=== PATIENT | male | born 1980 | race Caucasian/White ===

== ENCOUNTER 2016-08-25 13:08 | Emergency (ER) | payer OTHER ==
[2016-08-25 13:38] VITALS: BP 177/75; PULSE 83; RESP 20
[2016-08-25] MEDS ORDERED: SODIUM CHLORIDE 0.9% 1,000 ML IV STA ×2 (13:46)
[2016-08-25] MEDS ORDERED: ACETAMINOPHEN TAB 325 MG TAB PO STA (13:46)
--- NOTE | 2016-08-25 13:57 | ED ---
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 Reports for the past 3 days he's had fatigue, muscle aches and pains, joint pains fever today 101. Loose stools for the last 3 days. Cold sweats last night. Patient reports that none of his coworkers or family feels same way. He is concerned about Lyme's disease. - Related Data Previous Rx's Medication Instructions Recorded Doxycycline [Vibramycin] 50 mg PO Q12HR #42 capsule 08/25/16 Allergies Allergy/AdvReac Type Severity Reaction Status Date / Time metoclopramide HCl AdvReac Unknown Verified 08/25/16 13:50 [From Reglan] Review of Systems ROS Statement: Those systems with pertinent positive or pertinent negative responses have been documented in the HPI. Review of systems no headache or visual acuity changes no chest pain or shortness of breath. Patient reports eye is loose stool. No change in appetite though. No neuro deficits he has muscle aches and pains and joint pains. No rashes noted. Never noticed any tick bites. All systems are reviewed. No significant past medical problems. Surgeries none. Family history grandmother had breast cancer. Patient has ALLERGIES to Reglan. He does smoke strongly encouraged to stop denies alcohol use. ROS Other: All systems not noted in ROS Statement are negative. Past Medical History Past Medical History: No Reported History History of Any Multi-Drug Resistant Organisms: None Reported Past Surgical History: No Surgical Hx Reported Past Psychological History: No Psychological Hx Reported Smoking Status: Current every day smoker Past Alcohol Use History: Rare Past Drug Use History: None Reported General Exam - General Exam Comments Initial Comments: General: The patient is awake and alert, in no distress, and does not appear acutely ill. See chief complaint. Vital signs temp 101.0 pulse 83 respiratory rate 20 pulse ox 99% room air blood pressure 177/75 Eye: Pupils are equal, round and reactive to light, extra-ocular movements are intact ; there is normal conjunctiva bilaterally. No signs of icterus. Ears, nose, mouth and throat: There are moist mucous membranes and no oral lesions. Neck: The neck is supple, there is no tenderness , no anterior cervical lymphadenopathy, no meningeal irritation or meningismus or stiff neck. Cardiovascular: There is a regular rate and rhythm. No murmur, rub or gallop is appreciated. Respiratory: Lungs are clear to auscultation, respirations are non-labored, breath sounds are equal. No wheezes, stridor, rales, or rhonchi. Gastrointestinal: Soft, non-distended, non-tender abdomen without masses or organomegaly noted. There is no rebound or guarding present. No CVA tenderness. Bowel sounds are unremarkable. Diarrhea for 3 days. Back: There is no tenderness to palpation in the midline. There is no obvious deformity. No rashes noted. Musculoskeletal: Normal ROM, no tenderness, There is no pedal edema. There is no calf tenderness or swelling. Sensation intact. Pulses equal bilaterally 2+. Muscle aches and pains, joint pains. No swollen joints. Neurological: No neuro deficits. Skin: Skin is warm and dry and no rashes or lesions are noted. No rashes noted. Never felt or saw a tick on his body. Limitations: no limitations Course Vital Signs 08/25/16 13:31 Temperature 101.0 F H Pulse Rate 83 Respiratory 20 Rate Blood Pressure 177/75 O2 Sat by Pulse 99 Oximetry Medical Decision Making - Medical Decision Making Medical decision making patient's white count is 10 hemoglobin 15 hematocrit of 48. Potassium 4.2 with a BUN 14 creatinine 0.91 and GFR greater than 60. Glucose 95. Bibb negative influenza AB-. - Lab Data Result diagrams: 08/25/16 14:01 08/25/16 14:01 Lab Results 08/25/16 08/25/16 08/25/16 Range/Units 14:01 14:01 14:01 WBC 10.3 (3.8-10.6) k/uL RBC 5.54 (4.30-5.90) m/uL Hgb 15.6 (13.0-17.5) gm/dL Hct 48.4 (39.0-53.0) % MCV 87.4 (80.0-100.0) fL MCH 28.2 (25.0-35.0) pg MCHC 32.3 (31.0-37.0) g/dL RDW 13.7 (11.5-15.5) % Plt Count 215 (150-450) k/uL Neutrophils % 83 % Lymphocytes % 10 % Monocytes % 4 % Eosinophils % 1 % Basophils % 0 % Neutrophils # 8.6 H (1.3-7.7) k/uL Lymphocytes # 1.0 (1.0-4.8) k/uL Monocytes # 0.5 (0-1.0) k/uL Eosinophils # 0.1 (0-0.7) k/uL Basophils # 0.0 (0-0.2) k/uL Sodium 141 (137-145) mmol/L Potassium 4.2 (3.5-5.1) mmol/L Chloride 104 (98-107) mmol/L Carbon Dioxide 25 (22-30) mmol/L Anion Gap 12 mmol/L BUN 14 (9-20) mg/dL Creatinine 0.91 (0.66-1.25) mg/dL Est GFR (MDRD) Af Amer >60 (>60 ml/min/1.73 sqM) Est GFR (MDRD) Non-Af >60 (>60 ml/min/1.73 sqM) Glucose 95 (74-99) mg/dL Calcium 9.3 (8.4-10.2) mg/dL Total Bilirubin 0.7 (0.2-1.3) mg/dL AST 33 (17-59) U/L ALT 20 L (21-72) U/L Alkaline Phosphatase 73 (38-126) U/L Total Protein 7.4 (6.3-8.2) g/dL Albumin 4.3 (3.5-5.0) g/dL Heterophile Antibody Negative (Negative) Influenza Type A RNA (Not Detectd) Influenza Type B (PCR) (Not Detectd) 08/25/16 Range/Units 14:01 WBC (3.8-10.6) k/uL RBC (4.30-5.90) m/uL Hgb (13.0-17.5) gm/dL Hct (39.0-53.0) % MCV (80.0-100.0) fL MCH (25.0-35.0) pg MCHC (31.0-37.0) g/dL RDW (11.5-15.5) % Plt Count (150-450) k/uL Neutrophils % % Lymphocytes % % Monocytes % % Eosinophils % % Basophils % % Neutrophils # (1.3-7.7) k/uL Lymphocytes # (1.0-4.8) k/uL Monocytes # (0-1.0) k/uL Eosinophils # (0-0.7) k/uL Basophils # (0-0.2) k/uL Sodium (137-145) mmol/L Potassium (3.5-5.1) mmol/L Chloride (98-107) mmol/L Carbon Dioxide (22-30) mmol/L Anion Gap mmol/L BUN (9-20) mg/dL Creatinine (0.66-1.25) mg/dL Est GFR (MDRD) Af Amer (>60 ml/min/1.73 sqM) Est GFR (MDRD) Non-Af (>60 ml/min/1.73 sqM) Glucose (74-99) mg/dL Calcium (8.4-10.2) mg/dL Total Bilirubin (0.2-1.3) mg/dL AST (17-59) U/L ALT (21-72) U/L Alkaline Phosphatase (38-126) U/L Total Protein (6.3-8.2) g/dL Albumin (3.5-5.0) g/dL Heterophile Antibody (Negative) Influenza Type A RNA Not Detected (Not Detectd) Influenza Type B (PCR) Not Detected (Not Detectd) Disposition Clinical Impression: Viral infection Disposition: HOME SELF-CARE Condition: Stable Instructions: Fever in Adults (ED), Lyme Disease (ED) Additional Instructions: A call for lab results in 3-5 days. Use Pepto-Bismol for diarrhea. Take doxycycline 100 mg twice a day until results are known of your lab tests. Follow-up with year family physician. He does have family physician follow-up with Dr. Jean-Baptiste Prescriptions: Doxycycline [Vibramycin] 50 mg PO Q12HR #42 capsule Referrals: None,Stated [Primary Care Provider] - 1-2 days Time of Disposition: 16:05
[2016-08-25 14:23] LABS: Basophils % (A) 0 %; CH 28.8; CHCM 33.1; Eosinophils # (A) 0.1 k/uL (0-0.7); Eosinophils % (A) 1 %; HCT 48.4 % (39.0-53.0); HDW 2.43; HGB 15.6 gm/dL (13.0-17.5); Luc # (Auto) 0.17; Luc % (Auto) 2; Lymphocytes % (A) 10 %; MCH 28.2 pg (25.0-35.0); MCHC 32.3 g/dL (31.0-37.0); MCV 87.4 fL (80.0-100.0); Mean Platelet Volume 6.7; Monocytes # (A) 0.5 k/uL (0-1.0); Monocytes % (A) 4 %; Neutrophils # (A) 8.6 k/uL (1.3-7.7); Neutrophils % (A) 83 %; RBC 5.54 m/uL (4.30-5.90); RDW 13.7 % (11.5-15.5); WBC 10.3 k/uL (3.8-10.6); WBC (Perox) 9.92
[2016-08-25 14:29] LABS: ALT 20 U/L (21-72); AST 33 U/L (17-59); Alkaline Phosphatase 73 U/L (38-126); Anion Gap 12 mmol/L; Blood Urea Nitrogen 14 mg/dL (9-20); Calcium 9.3 mg/dL (8.4-10.2); Carbon Dioxide 25 mmol/L (22-30); Chloride 104 mmol/L (98-107); Glucose 95 mg/dL (74-99); Non-African American GFR(MDRD) >60 (>60 ml/min/1.73 sqM); Potassium 4.2 mmol/L (3.5-5.1); Sodium 141 mmol/L (137-145); Total Bilirubin 0.7 mg/dL (0.2-1.3); Total Protein 7.4 g/dL (6.3-8.2)
[2016-08-25 16:38] VITALS: TEMP 98.7
[2016-08-27 10:32] LABS: Lyme IgG/IgM 0.2 Index; Lyme IgG/IgM Interp NEGATIVE (NEGATIVE)
== END 2016-08-25 16:18 | disposition home or self-care (01) ==
LOC: EC 13:08
DX: B34.9 Viral infection, unspecified (principal); F17.200 Nicotine dependence, unspecified, uncomplicated; Z88.8 Allergy status to other drugs, medicaments and biological substances
CPT/HCPCS: 36415; 80053; 85025; 86308; 86618; 87040; 87502; 99283

== ENCOUNTER 2019-01-10 13:31 | Emergency (ER) | payer OTHER ==
[2019-01-10] MEDS ORDERED: ORPHENADRINE 30 MG/ML 2 ML VIAL IM STA (13:57)
[2019-01-10] MEDS ORDERED: KETOROLAC 60 MG/2 ML VIAL IM STA (13:57)
--- NOTE | 2019-01-10 14:18 | ED ---
Upper Extremity HPI - General Chief Complaint: Extremity Injury, Upper Stated Complaint: Shoulder pain Time Seen by Provider: 01/10/19 13:45 Source: patient, RN notes reviewed Mode of arrival: ambulatory Limitations: no limitations - History of Present Illness Initial Comments: 38-year-old male presents emergency Department chief complaint of left shoulder, left trapezius pain. Patient states that this started when he woke up this morning. Patient states that the pain is unbearable and worse when he moves his neck. He denies any trauma. He does admit that he moved down to get something out of her drawer yesterday and felt a twinge in his neck. Patient states that he's had no prior neck or shoulder issues. Denies any chest pain. Patient de nies fevers, chills. Denies any swelling. He chest wall to come medications no relief. - Related Data Previous Rx's Medication Instructions Recorded Doxycycline [Vibramycin] 50 mg PO Q12HR #42 capsule 08/25/16 Cyclobenzaprine [Flexeril] 10 mg PO TID PRN #15 tab 01/10/19 Ibuprofen [Motrin] 600 mg PO Q8HR PRN #30 tab 01/10/19 Allergies Allergy/AdvReac Type Severity Reaction Status Date / Time metoclopramide HCl AdvReac Unknown Verified 01/10/19 13:44 [From [facility]] Review of Systems ROS Statement: Those systems with pertinent positive or pertinent negative responses have been documented in the HPI. ROS Other: All systems not noted in ROS Statement are negative. Past Medical History Past Medical History: No Reported History History of Any Multi-Drug Resistant Organisms: None Reported Past Surgical History: No Surgical Hx Reported Past Psychological History: No Psychological Hx Reported Smoking Status: Current every day smoker Past Alcohol Use History: Rare Past Drug Use History: Marijuana General Exam Limitations: no limitations General appearance: alert, in no apparent distress Head exam: Present: atraumatic, normocephalic, normal inspection Neck exam: Present: normal inspection, tenderness (Tenderness over the left trapezius, muscle spasm noted). Absent: meningismus, full ROM (Decreased range of motion secondary to pain), lymphadenopathy Respiratory exam: Present: normal lung sounds bilaterally. Absent: respiratory distress, wheezes, rales, rhonchi, stridor Cardiovascular Exam: Present: regular rate, normal rhythm, normal heart sounds. Absent: systolic murmur, diastolic murmur, rubs, gallop, clicks Extremities exam: Present: other (Upper extremities full range of motion neurovascular intact) Back exam: Present: full ROM. Absent: tenderness, paraspinal tenderness, vertebral tenderness Neurological exam: Present: alert, oriented X3, CN II-XII intact, reflexes normal. Absent: motor sensory deficit Skin exam: Present: warm, dry, intact, normal color. Absent: rash Course Vital Signs 01/10/19 13:42 Temperature 98.4 F Pulse Rate 84 Respiratory 18 Rate Blood Pressure 126/73 O2 Sat by Pulse 98 Oximetry Medical Decision Making - Medical Decision Making X-rays are unremarkable. Patient has left trapezius muscle spasm causing d iscomfort. Patient we discharged with muscle relaxers, pain medication return parameters were discussed. Disposition Clinical Impression: Strain of left trapezius muscle, Trapezius muscle spasm Disposition: HOME SELF-CARE Condition: Stable Instructions (If sedation given, give patient instructions): Spasmodic Torticollis (ED), Muscle Spasm (ED) Additional Instructions: Please return to the Emergency Department if symptoms worsen or any other concerns. Prescriptions: Cyclobenzaprine [Flexeril] 10 mg PO TID PRN #15 tab PRN Reason: Muscle Spasm Ibuprofen [Motrin] 600 mg PO Q8HR PRN #30 tab PRN Reason: Pain Is patient prescribed a controlled substance at d/c from ED?: No Referrals: None,Stated [Primary Care Provider] - 1-2 days Time of Disposition: 14:28
--- NOTE | 2019-01-10 14:23 | XR ---
EXAMINATION TYPE: XR cervical spine comp DATE OF EXAM: 01/10/2019 COMPARISON: None HISTORY: Pain TECHNIQUE: Cervical spine is examined in 5 views. FINDINGS: Prevertebral space is normal. There is slight kyphosis which can be positional. Posterior s quin lamellar line is intact. Foramen are patent. Disc height and vertebral body heights are preserv ed. IMPRESSION: 1. No acute osseous abnormality. 2. Minimal kyphosis which can be positional.
--- NOTE | 2019-01-10 14:24 | XR ---
EXAMINATION TYPE: XR chest 1V DATE OF EXAM: 01/10/2019 COMPARISON: None INDICATION: Pain, decreased range of motion left shoulder TECHNIQUE: Single frontal view of the chest is obtained. FINDINGS: The heart size is normal. The pulmonary vasculature is normal. The lungs are clear. Osseous structures appear normal IMPRESSION: 1. No acute pulmonary process.
[2019-01-10] MEDS ORDERED: ACET/COD 300 MG/30 MG STARTER PACK 6 TAB BTL PO STA (14:28)
[2019-01-10 14:53] VITALS: BP 129/74; PULSE 74; RESP 16; TEMP 98
== END 2019-01-10 14:52 | disposition home or self-care (01) ==
LOC: EC 13:31
DX: S46.812A Strain of other muscles, fascia and tendons at shoulder and upper arm level, left arm, initial encounter (principal); M62.830 Muscle spasm of back; F17.200 Nicotine dependence, unspecified, uncomplicated; Z88.8 Allergy status to other drugs, medicaments and biological substances; X58.XXXA Exposure to other specified factors, initial encounter
CPT/HCPCS: 72050; 71045; 99283; 96372 ×2; J2360; J1885

== ENCOUNTER 2020-07-22 12:46 | Emergency (ER) | payer OTHER ==
[2020-07-22 12:57] VITALS: BP 113/69; PULSE 101; RESP 18; TEMP 98.7
[2020-07-22] MEDS ORDERED: KETOROLAC 15 MG/ML 1 ML VIAL IM STA (13:07)
[2020-07-22] MEDS ORDERED: ACET/COD 300 MG/30 MG STARTER PACK 6 TAB BTL PO STA (13:10)
--- NOTE | 2020-07-22 13:11 | ED ---
ENT HPI - General Chief complaint: Dental/Oral Stated complaint: Tooth pain Time Seen by Provider: 07/22/20 12:58 Source: patient Mode of arrival: ambulatory Limitations: no limitations - History of Present Illness Initial comments: Patient is a 40-year-old male presenting to the emergency Department with complaints of left-sided dental pain for the past week. He states his tooth broke last week and he's been trying to do with the pain. He has been taking ibuprofen, has been seem to helping but over the last 2 days his pain increased. He is trying to get into dental clinic. He denies any fevers or chills, no facial swelling, no nausea or vomiting. He states he thinks he might have an infection starting is requesting antibiotics. He has no further complaints at this time. - Related Data Previous Rx's Medication Instructions Recorded Doxycycline [Vibramycin] 50 mg PO Q12HR #42 capsule 08/25/16 Cyclobenzaprine [Flexeril] 10 mg PO TID PRN #15 tab 01/10/19 Ibuprofen [Motrin] 600 mg PO Q8HR PRN #30 tab 01/10/19 Penicillin V Potassium [Pen Vee K] 500 mg PO QID 7 Days #28 tablet 07/22/20 Allergies Allergy/AdvReac Type Severity Reaction Status Date / Time metoclopramide HCl AdvReac Unknown Verified 07/22/20 12:57 [From [facility]] Review of Systems ROS Statement: Those systems with pertinent positive or pertinent negative responses have been documented in the HPI. ROS Other: All systems not noted in ROS Statement are negative. Past Medical History Past Medical History: No Reported History History of Any Multi-Drug Resistant Organisms: None Reported Past Surgical History: No Surgical Hx Reported Past Psychological History: Anxiety Smoking Status: Vaper Past Alcohol Use History: Rare Past Drug Use History: Marijuana General Exam - General Exam Comments Initial Comments: GENERAL: Patient is well-developed and well-nourished. Patient is nontoxic and in no acute distress. HEAD: Atraumatic, normocephalic. EYES: Pupils equal round and reactive to light, extraocular movements intact, sclera anicteric, conjunctiva are normal. Eyelids were unremarkable. ENT: Nares patent, oropharynx clear without exudates. Moist mucous membranes. Patient has a small fracture of tooth #19, no visible abscess seen, no facial swelling. NECK: Normal range of motion, supple without lymphadenopathy or JVD. LUNGS: Unlabored respirations. Breath sounds clear to auscultation bilaterally and equal. No wheezes rales or rhonchi. HEART: Regular rate and rhythm without murmurs, rubs or gallops. ABDOMEN: Soft, nontender, normoactive bowel sounds. No guarding, no rebound. No masses appreciated. : Deferred MUSCULOSKELETAL: Normal extremities with adequate strength and normal range of motion, no pitting or edema. No clubbing or cyanosis. NEUROLOGICAL: Patient is alert and oriented x 3. Normal speech, normal gait. PSYCH: Normal mood, normal affect. SKIN: Warm, Dry, normal turgor, no rashes or lesions noted. Limitations: no limitations Course Vital Signs 07/22/20 12:54 Temperature 98.7 F Pulse Rate 101 H Respiratory 18 Rate Blood Pressure 113/69 O2 Sat by Pulse 98 Oximetry Medical Decision Making - Medical Decision Making Patient is a 40-year-old male here for left-sided dental pain for the past week, he had a small fracture in tooth #19, no visible dental abscess, no facial swelling. His vitals are stable, afebrile. Patient will be started on penicillin for possible dental abscess, he does have an appointment to see a dental clinic next week. He can continue with ibuprofen, alternate with Tylenol for discomfort. He is stable for discharge. Return parameters were discussed with him and he verbalized understanding. Case discussed with Dr. Gutierrez. Disposition Clinical Impression: Fracture of tooth, Toothache Disposition: HOME SELF-CARE Condition: Stable Instructions (If sedation given, give patient instructions): Dental Abscess (ED) Additional Instructions: Please return to the Emergency Department if symptoms worsen or any other concerns. Take antibiotic as prescribed. Alternate between Tylenol and Motrin for discomfort. Follow up with your dentist as discussed. Prescriptions: Penicillin V Potassium [Pen Vee K] 500 mg PO QID 7 Days #28 tablet Is patient prescribed a controlled substance at d/c from ED?: No Referrals: None,Stated [Primary Care Provider] - 1-2 days Time of Disposition: 13:10
== END 2020-07-22 13:26 | disposition home or self-care (01) ==
LOC: EC 12:46
DX: K03.81 Cracked tooth (principal); F17.290 Nicotine dependence, other tobacco product, uncomplicated
CPT/HCPCS: 96372 ×2; 99282 ×2; J1885

== ENCOUNTER 2020-08-22 06:34 | Emergency (ER) | payer OTHER ==
[2020-08-22 06:40] VITALS: BP 127/77; PULSE 77; RESP 20; TEMP 98
--- NOTE | 2020-08-22 06:40 | ED ---
General Adult HPI - General Stated complaint: Dental Pain Time Seen by Provider: 08/22/20 06:38 Source: patient, RN notes reviewed Mode of arrival: ambulatory Limitations: no limitations - History of Present Illness Initial comments: This a 40-year-old male presents emergency Department chief complaint dental pain. Patient states his started last 2 days. Patient was seen yesterday at on the emergency department was given amoxicillin 3 times a day. Patient states it seemed to worsen throughout the night. Patient suffering for his pain. Patient states that there is an area of swelling. No fevers or chills no difficulty swallowing. Patient states that he contacted the dental clinic at home would be several months. - Related Data Previous Rx's Medication Instructions Recorded Doxycycline [Vibramycin] 50 mg PO Q12HR #42 capsule 08/25/16 Cyclobenzaprine [Flexeril] 10 mg PO TID PRN #15 tab 01/10/19 Ibuprofen [Motrin] 600 mg PO Q8HR PRN #30 tab 01/10/19 Penicillin V Potassium [Pen Vee K] 500 mg PO QID 7 Days #28 tablet 07/22/20 Clindamycin HCl 300 mg PO Q6HR #40 cap 08/22/20 Allergies Allergy/AdvReac Type Severity Reaction Status Date / Time metoclopramide HCl AdvReac Unknown Verified 08/22/20 06:39 [From [facility]] Review of Systems ROS Statement: Those systems with pertinent positive or pertinent negative responses have been documented in the HPI. ROS Other: All systems not noted in ROS Statement are negative. Past Medical History Past Medical History: No Reported History History of Any Multi-Drug Resistant Organisms: None Reported Past Surgical History: No Surgical Hx Reported Past Psychological History: Anxiety Smoking Status: Vaper Past Alcohol Use History: Rare Past Drug Use History: Marijuana General Exam General appearance: alert, in no apparent distress Head exam: Present: atraumatic, normocephalic, normal inspection Eye exam: Present: normal appearance, PERRL, EOMI. Absent: scleral icterus, co njunctival injection, periorbital swelling ENT exam: Present: mucous membranes moist, TM's normal bilaterally, normal external ear exam. Absent: normal oropharynx (Dental caries, no drainable abscess) Neck exam: Present: normal inspection, full ROM. Absent: tenderness, meningismus, lymphadenopathy Respiratory exam: Present: normal lung sounds bilaterally. Absent: respiratory distress, wheezes, rales, rhonchi, stridor Cardiovascular Exam: Present: regular rate, normal rhythm, normal heart sounds. Absent: systolic murmur, diastolic murmur, rubs, gallop, clicks Course Vital Signs 08/22/20 06:35 Temperature 98 F Pulse Rate 77 Respiratory 20 Rate Blood Pressure 127/77 O2 Sat by Pulse 100 Oximetry Medical Decision Making - Medical Decision Making 40-year-old male presents emergency Department for dental pain. Patient has dental infection, , facial swelling. Patient placed on antibiotics. Patient is advised to continue taking antibiotics if no improvement may start new antibiotics. Patient provided pain control. Patient advised follow-up with dentist or dental clinic. Return parameters were discussed. Disposition Clinical Impression: Pain, dental Disposition: HOME SELF-CARE Condition: Stable Instructions (If sedation given, give patient instructions): Toothache (ED) Additional Instructions: Please return to the Emergency Department if symptoms worsen or any other concerns. Prescriptions: Clindamycin HCl 300 mg PO Q6HR #40 cap Is patient prescribed a controlled substance at d/c from ED?: No Referrals: None,Stated [Primary Care Provider] - 1-2 days Time of Disposition: 06:46
[2020-08-22] MEDS ORDERED: ACET/COD 300 MG/30 MG STARTER PACK 6 TAB BTL PO STA (06:45)
== END 2020-08-22 06:55 | disposition home or self-care (01) ==
LOC: EC 06:34
DX: K04.7 Periapical abscess without sinus (principal); F41.9 Anxiety disorder, unspecified; F17.290 Nicotine dependence, other tobacco product, uncomplicated; F12.90 Cannabis use, unspecified, uncomplicated
CPT/HCPCS: 99282

== ENCOUNTER 2020-10-12 20:18 | Emergency (ER) | payer OTHER ==
[2020-10-12 20:33] VITALS: BP 142/64; PULSE 94; RESP 17; TEMP 98.6
[2020-10-12] MEDS ORDERED: PROPARACAINE 0.5% OPHTH DROPS 15 ML BTL RIGHT EYE STA (20:53)
[2020-10-12] MEDS ORDERED: FLUORESCEIN STRIPS 1 MG STRIP RIGHT EYE ONE (20:53)
--- NOTE | 2020-10-12 21:24 | ED ---
Eye Problem HPI - General Chief complaint: Eye Problems Stated complaint: right eye irritation Time Seen by Provider: 10/12/20 20:34 Source: patient Mode of arrival: ambulatory Limitations: no limitations - History of Present Illness Initial comments: Patient is a 32-year-old male presenting to the emergency Department with complaints of irritation in his right eye for the past 2-3 days. He states he was working on his car and believes a piece of metal landed in his eye. He states he thought he. All out but it continues to be irritated. He does not wear contacts. His tetanus is up-to-date. He denies any blurry vision, no headache, no significant eye pain just irritation. He has no further complaints at this time. - Related Data Previous Rx's Medication Instructions Recorded Doxycycline [Vibramycin] 50 mg PO Q12HR #42 capsule 08/25/16 Cyclobenzaprine [Flexeril] 10 mg PO TID PRN #15 tab 01/10/19 Ibuprofen [Motrin] 600 mg PO Q8HR PRN #30 tab 01/10/19 Penicillin V Potassium [Pen Vee K] 500 mg PO QID 7 Days #28 tablet 07/22/20 Clindamycin HCl 300 mg PO Q6HR #40 cap 08/22/20 Clindamycin HCl 300 mg PO Q6HR #40 cap 08/23/20 Erythromycin Ophth Oint [Romycin 1 applic RIGHT EYE QID 5 Days #1 10/12/20 Ophth Oint] tube Allergies Allergy/AdvReac Type Severity Reaction Status Date / Time metoclopramide HCl AdvReac Unknown Verified 10/12/20 20:32 [From [facility]] Review of Systems ROS Statement: Those systems with pertinent positive or pertinent negative responses have been documented in the HPI. ROS Other: All systems not noted in ROS Statement are negative. Past Medical History Past Medical History: No Reported History History of Any Multi-Drug Resistant Organisms: None Reported Past Surgical History: No Surgical Hx Reported Past Psychological History: Anxiety, Bipolar Smoking Status: Vaper Past Alcohol Use History: None Reported Past Drug Use History: Marijuana General Exam - General Exam Comments Initial Comments: GENERAL: Patient is well-developed and well-nourished. Patient is nontoxic and in no acute distress. HEAD: Atraumatic, normocephalic. EYES: Pupils equal round and reactive to light, extraocular movements intact, sclera anicteric. Eyelids were unremarkable. Right conjunctiva slightly injected, appears to be a foreign body noted right in the middle just to the right of his cornea. No other foreign bodies identified, for a scene stain only revealed an abrasion at the foreign body site, no other acute findings. ENT: Moist mucous membranes. NECK: Normal range of motion, supple without lymphadenopathy or JVD. LUNGS: Unlabored respirations. Breath sounds clear to auscultation bilaterally and equal. No wheezes rales or rhonchi. HEART: Regular rate and rhythm without murmurs, rubs or gallops. MUSCULOSKELETAL: Normal extremities with adequate strength and normal range of motion, no pitting or edema. No clubbing or cyanosis. NEUROLOGICAL: Patient is alert and oriented x 3. SKIN: Warm, Dry, normal turgor, no rashes or lesions noted. Limitations: no limitations Course Vital Signs 10/12/20 20:28 Temperature 98.6 F Pulse Rate 94 Respiratory 17 Rate Blood Pressure 142/64 O2 Sat by Pulse 97 Oximetry Procedures - Forgein Body Removal Eye Site: Right Anesthetic Used: Proparacaine Eye Exam Technique: Fluorescein Foreign Body Suspected: Metal Forgein Body Removal Technique: Cotton Swab, Irrigation, Needle Remaining Debris: No Patient Tolerated: well Medical Decision Making - Medical Decision Making Patient is a 32-year-old male here with right eye irritation for the past 2-3 days. There was a foreign body noted just to the right of his cornea. I did numb his eye with proparacaine drops, foreign body was removed with, swab as well as using a needle and irrigation. He tolerated procedure well. I will give him ophthalmology follow-up and start him on antibiotic ointment. He is s table for discharge in agreement with this plan of care. Disposition Clinical Impression: Foreign body of right eye Disposition: HOME SELF-CARE Condition: Stable Instructions (If sedation given, give patient instructions): Eye Foreign Body (ED) Additional Instructions: Please return to the Emergency Department if symptoms worsen or any other concerns. Use antibiotic ointment as prescribed. Follow-up with ophthalmology. Prescriptions: Erythromycin Ophth Oint [Romycin Ophth Oint] 1 applic RIGHT EYE QID 5 Days #1 tube Is patient prescribed a controlled substance at d/c from ED?: No Referrals: None,Stated [Primary Care Provider] - 1-2 days Venu Desir MD [STAFF PHYSICIAN] - 1-2 days Time of Disposition: 21:24
== END 2020-10-12 21:43 | disposition home or self-care (01) ==
LOC: EC 20:18
DX: T15.01XA Foreign body in cornea, right eye, initial encounter (principal); W22.8XXA Striking against or struck by other objects, initial encounter; F17.290 Nicotine dependence, other tobacco product, uncomplicated; F12.90 Cannabis use, unspecified, uncomplicated; Z79.1 Long term (current) use of non-steroidal anti-inflammatories (NSAID); Z79.899 Other long term (current) drug therapy
CPT/HCPCS: 65220; 99283

== ENCOUNTER 2020-10-23 10:30 | Emergency (ER) | payer OTHER ==
[2020-10-23 10:34] VITALS: BP 135/88; PULSE 76; RESP 18; TEMP 98
--- NOTE | 2020-10-23 11:03 | ED ---
Head Injury HPI - General Chief complaint: Head Injury Stated complaint: head injury Time Seen by Provider: 10/23/20 10:36 Source: patient Mode of arrival: wheelchair Limitations: no limitations - History of Present Illness Initial comments: 40-year-old male presenting to the emergency department with a chief complaint of a head injury. States this occurred about one hour prior to arrival. Patient reports he was changing the spring on the shocks or review of "when the tool slipped, caused decompressed spring to flying to his forehead. Patient rep orts an abrasion to the forehead with some pain when the area is palpated. He denies any loss of consciousness and blood thinners. He denies any headaches, once the weakness and paresthesias. Denies any blurry vision at this time. - Related Data Home Medications Medication Instructions Recorded Confirmed Divalproex Sodium [Depakote] 500 mg PO BID 10/23/20 10/23/20 Naproxen Sodium [Aleve] 440 mg PO DAILY PRN 10/23/20 10/23/20 busPIRone HCL 15 mg PO BID 10/23/20 10/23/20 Previous Rx's Medication Instructions Recorded Erythromycin Ophth Oint [Romycin 1 applic RIGHT EYE QID 5 Days #1 10/12/20 Ophth Oint] tube Allergies/Adverse reactions: Allergies Allergy/AdvReac Type Severity Reaction Status Date / Time metoclopramide HCl AdvReac Unknown Verified 10/23/20 11:32 [From [facility]] Review of Systems ROS Statement: Those systems with pertinent positive or pertinent negative responses have been documented in the HPI. ROS Other: All systems not noted in ROS Statement are negative. Past Medical History Past Medical History: No Reported History History of Any Multi-Drug Resistant Organisms: None Reported Past Surgical History: No Surgical Hx Reported Past Psychological History: Anxiety, Bipolar Smoking Status: Current every day smoker, Vaper Past Alcohol Use History: None Reported Past Drug Use History: Marijuana General Exam Limitations: no limitations General appearance: alert, in no apparent distress Head exam: Present: atraumatic, normocephalic, normal inspection (, Very superficial laceration to forehead). Absent: other (Negative Gomez sign, raccoon eyes, temp and.) Eye exam: Present: normal appearance, PERRL, EOMI. Absent: scleral icterus, conjunctival injection, nystagmus Pupils: Present: normal accommodation ENT exam: Present: normal exam, normal oropharynx, mucous membranes moist, TM's normal bilaterally, normal external ear exam Neck exam: Present: normal inspection, full ROM. Absent: tenderness Respiratory exam: Present: normal lung sounds bilaterally. Absent: respiratory distress Cardiovascular Exam: Present: regular rate, normal rhythm, normal heart sounds. Absent: diastolic murmur Extremities exam: Present: normal inspection, full ROM. Absent: tenderness Back exam: Present: normal inspection, full ROM. Absent: tenderness Neurological exam: Present: alert, oriented X3 Psychiatric exam: Present: normal affect, normal mood Skin exam: Present: warm, dry, intact, normal color Course Vital Signs 10/23/20 10:31 Temperature 98.0 F Pulse Rate 76 Respiratory 18 Rate Blood Pressure 135/88 O2 Sat by Pulse 99 Oximetry Medical Decision Making - Medical Decision Making 40-year-old male presenting to the emergency department with a chief complaint of a head injury. On physical examination, patient has a fair superficial laceration to the head. I did offer adeel, he declined. He would rather have some Steri-Strips. CT of the head and neck is unremarkable. The wound was cleaned and Steri-Strips applied. His tetanus is up-to-date. Return parameters discussed. PCP follow-up discussed. Disposition Clinical Impression: Contusion of scalp, Head injury Disposition: HOME SELF-CARE Condition: Stable Instructions (If sedation given, give patient instructions): Concussion (ED) Additional Instructions: Please return to the Emergency Department if symptoms worsen or any other concerns. Is patient prescribed a controlled substance at d/c from ED?: No Referrals: None,Stated [Primary Care Provider] - 1-2 days Time of Disposition: 11:45
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
== END 2020-10-23 11:56 | disposition home or self-care (01) ==
LOC: EC 10:30
DX: S00.03XA Contusion of scalp, initial encounter (principal); F41.9 Anxiety disorder, unspecified; F31.9 Bipolar disorder, unspecified; F17.200 Nicotine dependence, unspecified, uncomplicated; F12.90 Cannabis use, unspecified, uncomplicated; W20.8XXA Other cause of strike by thrown, projected or falling object, initial encounter
CPT/HCPCS: 70450; 72125; 99283

== ENCOUNTER 2021-02-18 13:01 | Emergency (ER) | payer OTHER ==
[2021-02-18 13:22] VITALS: BP 133/84; PULSE 72; RESP 18; TEMP 98.2
[2021-02-18] MEDS ORDERED: LIDOCAINE 1% INJ 10MG/ML (20 ML MDV) SQ ONE (13:56)
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
== END 2021-02-18 15:30 | disposition home or self-care (01) ==
LOC: EC 13:01
DX: S01.01XA Laceration without foreign body of scalp, initial encounter (principal); S60.10XA Contusion of unspecified finger with damage to nail, initial encounter; V89.2XXA Person injured in unspecified motor-vehicle accident, traffic, initial encounter; F41.9 Anxiety disorder, unspecified; F31.9 Bipolar disorder, unspecified; F17.290 Nicotine dependence, other tobacco product, uncomplicated; F12.90 Cannabis use, unspecified, uncomplicated
CPT/HCPCS: 73030; 70450; 99284; 12002; J2001

== ENCOUNTER 2021-03-13 10:43 | Emergency (ER) | payer OTHER ==
[2021-03-13 11:02] VITALS: BP 161/85; PULSE 84; RESP 20; TEMP 98.9
--- NOTE | 2021-03-13 11:28 | ED ---
URI HPI - General Chief Complaint: Upper Respiratory Infection Stated Complaint: covid symptoms Time Seen by Provider: 03/13/21 10:48 Source: patient, RN notes reviewed Mode of arrival: ambulatory Limitations: no limitations - History of Present Illness Initial Comments: 41-year-old male presents emergency Department chief complaint of fever chills. cough congestion. Patient states symptoms started last couple days. Patient concerned he may have covid 19. No dyspnea. No chest pain. Patient does complain his body aches with increasing congestion sore throat and ear pain. - Related Data Home Medications Medication Instructions Recorded Confirmed Divalproex Sodium [Depakote] 500 mg PO BID 10/23/20 10/23/20 Naproxen Sodium [Aleve] 440 mg PO DAILY PRN 10/23/20 10/23/20 busPIRone HCL 15 mg PO BID 10/23/20 10/23/20 Previous Rx's Medication Instructions Recorded Erythromycin Ophth Oint [Romycin 1 applic RIGHT EYE QID 5 Days #1 10/12/20 Ophth Oint] tube HYDROcodone/APAP 5-325MG [[place] 1 tab PO Q6HR PRN 3 Days #12 tab 02/18/21 5-325] Allergies Allergy/AdvReac Type Severity Reaction Status Date / Time metoclopramide HCl AdvReac Unknown Verified 02/18/21 13:22 [From [facility]] Review of Systems ROS Statement: Those systems with pertinent positive or pertinent negative responses have been documented in the HPI. ROS Other: All systems not noted in ROS Statement are negative. Past Medical History Past Medical History: No Reported History History of Any Multi-Drug Resistant Organisms: None Reported Past Surgical History: No Surgical Hx Reported Past Psychological History: Anxiety, Bipolar Smoking Status: Current every day smoker, Vaper Past Alcohol Use History: None Reported Past Drug Use History: Marijuana General Exam Limitations: no limitations General appearance: alert, in no apparent distress Head exam: Present: atraumatic, normocephalic, normal inspection Eye exam: Present: normal appearance, PERRL, EOMI. Absent: scleral icterus, conjunctival injection, periorbital swelling ENT exam: Present: normal exam, normal oropharynx, mucous membranes moist Neck exam: Present: normal inspection, full ROM. Absent: tenderness, meningismus, lymphadenopathy Respiratory exam: Present: normal lung sounds bilaterally. Absent: respiratory distress, wheezes, rales, rhonchi, stridor Cardiovascular Exam: Present: regular rate, normal rhythm, normal heart sounds. Absent: systolic murmur, diastolic murmur, rubs, gallop, clicks Course Vital Signs 03/13/21 10:59 Temperature 98.9 F Pulse Rate 84 Respiratory 20 Rate Blood Pressure 161/85 O2 Sat by Pulse 99 Oximetry Medical Decision Making - Medical Decision Making Patient is positive for covid 19. Patient's vitals are reviewed and are stable be discharged in stable condition return parameters were discussed. - Lab Data Lab Results 03/13/21 Range/Units 11:03 Coronavirus (PCR) Detected A (Not Detectd) Disposition Clinical Impression: COVID-19 Disposition: HOME SELF-CARE Condition: Stable Instructions (If sedation given, give patient instructions): Coronavirus Disease 2019 (COVID-19) Additional Instructions: Please return to the Emergency Department if symptoms worsen or any other concerns. Is patient prescribed a controlled substance at d/c from ED?: No Referrals: None,Stated [Primary Care Provider] - 1-2 days Time of Disposition: 11:28
== END 2021-03-13 11:37 | disposition home or self-care (01) ==
LOC: EC 10:43
DX: U07.1 COVID-19 (principal); F41.9 Anxiety disorder, unspecified; F31.9 Bipolar disorder, unspecified; F17.200 Nicotine dependence, unspecified, uncomplicated; F12.90 Cannabis use, unspecified, uncomplicated
CPT/HCPCS: 87635; 99283

== ENCOUNTER 2022-08-20 06:42 | Emergency (ER) | payer OTHER ==
[2022-08-20 06:50] VITALS: RESP 18
--- NOTE | 2022-08-20 07:22 | ED ---
General Adult HPI - General Chief complaint: Extremity Problem,Nontraumatic Stated complaint: Swollen right hand Time Seen by Provider: 08/20/22 07:00 Source: patient, RN notes reviewed, old records reviewed Mode of arrival: ambulatory Limitations: no limitations - History of Present Illness Initial comments: 42 yo female presenting for evaluation of right hand swelling. Patient initially noticed a small area of swelling on the dorsum of his right hand. This regressed over the past 48 hours and now involves the entire dorsal surface of the hand and he has pain with range of motion of his second and third digit. Patient is nondiabetic, no history of fever. - Related Data Home Medications Medication Instructions Recorded Confirmed Divalproex Sodium [Depakote] 500 mg PO BID 10/23/20 10/23/20 Naproxen Sodium [Aleve] 440 mg PO DAILY PRN 10/23/20 10/23/20 busPIRone HCL 15 mg PO BID 10/23/20 10/23/20 Previous Rx's Medication Instructions Recorded Erythromycin Ophth Oint [Romycin 1 applic RIGHT EYE QID 5 Days #1 10/12/20 Ophth Oint] tube HYDROcodone/APAP 5-325MG [[place] 1 tab PO Q6HR PRN 3 Days #12 tab 02/18/21 5-325] Cephalexin [Keflex] 500 mg PO Q6HR 10 Days #40 cap 08/20/22 Sulfamethox-Tmp 800-160Mg [Bactrim 1 tab PO Q12HR 10 Days #20 tab 08/20/22 DS 800-160 mg] Allergies Allergy/AdvReac Type Severity Reaction Status Date / Time metoclopramide HCl AdvReac Unknown Verified 08/20/22 06:50 [From [facility]] Review of Systems ROS Statement: Those systems with pertinent positive or pertinent negative responses have been documented in the HPI. ROS Other: All systems not noted in ROS Statement are negative. Past Medical History Past Medical History: No Reported History History of Any Multi-Drug Resistant Organisms: None Reported Past Surgical History: No Surgical Hx Reported Past Psychological History: Anxiety, Bipolar Smoking Status: Current every day smoker, Vaper Past Alcohol Use History: None Reported Past Drug Use History: Marijuana General Exam Limitations: no limitations General appearance: alert, in no apparent distress Head exam: Present: atraumatic, normocephalic Eye exam: Present: normal appearance, PERRL ENT exam: Present: normal exam Neck exam: Present: normal inspection Respiratory exam: Present: normal lung sounds bilaterally. Absent: respiratory distress Cardiovascular Exam: Present: regular rate, normal rhythm GI/Abdominal exam: Present: soft. Absent: distended, tenderness Extremities exam: Present: other (Erythema and swelling to the dorsum of the r ight hand. Pain with flexion second third digits.) Neurological exam: Present: alert, oriented X3, CN II-XII intact. Absent: motor sensory deficit Psychiatric exam: Present: normal affect, normal mood Skin exam: Present: warm Course Vital Signs 08/20/22 06:48 Temperature 98 F Pulse Rate 97 Respiratory 18 Rate Blood Pressure 124/84 O2 Sat by Pulse 100 Oximetry Medical Decision Making - Medical Decision Making Was pt. sent in by a medical professional or institution (, [facility], MEMBER SERVICE REPRESENTATIVE, urgent care, hospital, or senior living...) When possible be specific @ -No Did you speak to anyone other than the patient for history (EMS, parent, family, police, friend...)? What history was obtained from this source @ -No Did you review nursing and triage notes (agree or disagree)? Why? @ -I reviewed and agree with nursing and triage notes Were old charts reviewed (outside hosp., previous admission, EMS record, old EKG, old radiological studies, urgent care reports/EKG's, senior living records)? Report findings @ -No old charts were reviewed Differential Diagnosis (chest pain, altered mental status, abdominal pain women, abdominal pain men, vaginal bleeding, weakness, fever, dyspnea, syncope, headache, dizziness, GI bleed, back pain, seizure, CVA, palpatations, mental health, musculoskeletal)? @ -Cellulitis, extensor tenosynovitis, DVT EKG interpreted by me (3pts min.). @ -As above X-rays interpreted by me (1pt min.). @ -None done CT interpreted by me (1pt min.). @ -None done U/S interpreted by me (1pt. min.). @ -[Negative for DVT What testing was considered but not performed or refused? (CT, X-rays, U/S, labs)? Why? @ -None What meds were considered but not given or refused? Why? @ -None Did you discuss the management of the patient with other professionals (professionals i.e. , PA, MEMBER SERVICE REPRESENTATIVE, lab, RT, psych nurse, director of social work, counter supervisor, teacher, transportation security officer, case management manager)? Give summary @ -No Was smoking cessation discussed for >3mins.? @ -No Was critical care preformed (if so, how long)? @ -No Were there social determinants of health that impacted care today? How? (Homelessness, low income, unemployed, alcoholism, drug addiction, redd sportation, low edu. Level, literacy, decrease access to med. care, penitentiary, rehab)? @ -No Was there de-escalation of care discussed even if they declined (Discuss DNR or withdrawal of care, Hospice)? DNR status @ -No What co-morbidities impacted this encounter? (DM, HTN, Smoking, COPD, CAD, Cancer, CVA, ARF, Chemo, Hep., AIDS, mental health diagnosis, sleep apnea, morbid obesity)? @ -None Was patient admitted / discharged? Hospital course, mention meds given and route, prescriptions, significant lab abnormalities, going to OR and other pertinent info. @ -[42-year-old male presenting for evaluation of pain and swelling to the dorsum of his right hand. There is soft tissue swelling with an area tenderness. There is some pain with flexion of the second and third digits although this is at the end of the range of motion. There is no swelling within the digits themselves. Normal cap refill, normal pulse exam. The wrist has normal range of motion. Patient is afebrile. He has a normal white count without shift. He hasn't nondetectable CRP. I do feel this is likely a cellulitis rather than deep space infection of the hand. Patient started on antibiotics and given orthopedic follow-up. He is given strict return parameters including any worsening of swelling, pain, fever. Undiagnosed new problem with uncertain prognosis? @ -No Drug Therapy requiring intensive monitoring for toxicity (Heparin, Nitro, Insulin, Cardizem)? @ -No Were any procedures done? @ -No Diagnosis/symptom? @ -Cellulitis of the hand Acute, or Chronic, or Acute on Chronic? @ -Acute Uncomplicated (without systemic symptoms) or Complicated (systemic symptoms)? @ -default Side effects of treatment? @ -No Exacerbation, Progression, or Severe Exacerbation? @ -No Poses a threat to life or bodily function? How? (Chest pain, USA, SC, pneumonia, PE, COPD, DKA, ARF, appy, cholecystitis, CVA, Diverticulitis, Homicidal, Suicidal, threat to staff... and all critical care pts) @ -Low risk - Lab Data Result diagrams: 08/20/22 07:21 08/20/22 07:21 Lab Results 08/20/22 08/20/22 Range/Units 07:21 07:21 WBC 6.6 (3.8-10.6) k/uL RBC 5.62 (4.30-5.90) m/uL Hgb 16.3 (13.0-17.5) gm/dL Hct 49.2 (39.0-53.0) % MCV 87.5 (80.0-100.0) fL MCH 29.0 (25.0-35.0) pg MCHC 33.2 (31.0-37.0) g/dL RDW 13.6 (11.5-15.5) % Plt Count 285 (150-450) k/uL MPV 7.3 Neutrophils % 63 % Lymphocytes % 27 % Monocytes % 6 % Eosinophils % 2 % Basophils % 0 % Neutrophils # 4.1 (1.3-7.7) k/uL Lymphocytes # 1.8 (1.0-4.8) k/uL Monocytes # 0.4 (0-1.0) k/uL Eosinophils # 0.1 (0-0.7) k/uL Basophils # 0.0 (0-0.2) k/uL Sodium 134 L (137-145) mmol/L Potassium 4.4 (3.5-5.1) mmol/L Chloride 99 (98-107) mmol/L Carbon Dioxide 26 (22-30) mmol/L Anion Gap 9 mmol/L BUN 15 (9-20) mg/dL Creatinine 0.94 (0.66-1.25) mg/dL Est GFR (CKD-EPI)AfAm >90 (>60 ml/min/1.73 sqM) Est GFR (CKD-EPI)NonAf >90 (>60 ml/min/1.73 sqM) Glucose 102 H (74-99) mg/dL Calcium 9.6 (8.4-10.2) mg/dL Total Bilirubin 1.0 (0.2-1.3) mg/dL AST 40 (17-59) U/L ALT 27 (4-49) U/L Alkaline Phosphatase 80 (38-126) U/L C-Reactive Protein <0.5 (<1.0) mg/dL Total Protein 7.9 (6.3-8.2) g/dL Albumin 4.7 (3.5-5.0) g/dL Disposition Clinical Impression: Cellulitis Disposition: HOME SELF-CARE Condition: Good Instructions (If sedation given, give patient instructions): Cellulitis (ED) Prescriptions: Sulfamethox-Tmp 800-160Mg [Bactrim DS 800-160 mg] 1 tab PO Q12HR 10 Days #20 tab Cephalexin [Keflex] 500 mg PO Q6HR 10 Days #40 cap Is patient prescribed a controlled substance at d/c from ED?: No Referrals: Anastacio Lawrence MD [Primary Care Provider] - 1-2 days Gagan Garza DO [Doctor of Osteopathic Medicine] - 1-2 days Time of Disposition: 08:20
--- NOTE | 2022-08-20 07:46 | US ---
EXAMINATION TYPE: US venous doppler duplex UE RT DATE OF EXAM: 08/20/2022 COMPARISON: NONE CLINICAL INDICATION: Male, 42 years old with history of swelling; extreme swelling within his hand, n o known injury, no h/o DVT SIDE PERFORMED: Right Grayscale, color doppler, spectral doppler imaging performed of the deep veins of the upper extremiti es. There is normal flow, compressibility and vascular waveforms. Right Arm: Negative for DVT IMPRESSION: No evidence for DVT within the right upper extremity.
[2022-08-20 08:08] LABS: Basophils % (A) 0 %; Eosinophils # (A) 0.1 k/uL (0-0.7); Eosinophils % (A) 2 %; HCT 49.2 % (39.0-53.0); HGB 16.3 gm/dL (13.0-17.5); Lymphocytes # (A) 1.8 k/uL (1.0-4.8); Lymphocytes % (A) 27 %; MCHC 33.2 g/dL (31.0-37.0); MCV 87.5 fL (80.0-100.0); Mean Platelet Volume 7.3; Monocytes # (A) 0.4 k/uL (0-1.0); Monocytes % (A) 6 %; Neutrophils # (A) 4.1 k/uL (1.3-7.7); Neutrophils % (A) 63 %; Platelet Count 285 k/uL (150-450); RBC 5.62 m/uL (4.30-5.90); RDW 13.6 % (11.5-15.5); WBC 6.6 k/uL (3.8-10.6)
[2022-08-20 08:23] LABS: ALT 27 U/L (4-49); AST 40 U/L (17-59); African American GFR (CKD) >90 (>60 ml/min/1.73 sqM); Albumin 4.7 g/dL (3.5-5.0); Alkaline Phosphatase 80 U/L (38-126); Anion Gap 9 mmol/L; Blood Urea Nitrogen 15 mg/dL (9-20); C Reactive Protein <0.5 mg/dL (<1.0); Calcium 9.6 mg/dL (8.4-10.2); Carbon Dioxide 26 mmol/L (22-30); Chloride 99 mmol/L (98-107); Glucose 102 mg/dL (74-99); Non-African American GFR(CKD) >90 (>60 ml/min/1.73 sqM); Potassium 4.4 mmol/L (3.5-5.1); Sodium 134 mmol/L (137-145); Total Protein 7.9 g/dL (6.3-8.2)
[2022-08-20 09:05] LABS: Erythrocyte Sedimentation Rate 3 mm/hr (0-15)
[2022-08-20 09:30] VITALS: BP 122/82; PULSE 94; TEMP 98.2
== END 2022-08-20 09:00 | disposition home or self-care (01) ==
LOC: EC 06:42
DX: L03.90 Cellulitis, unspecified (principal); F12.90 Cannabis use, unspecified, uncomplicated; F17.290 Nicotine dependence, other tobacco product, uncomplicated; Z88.8 Allergy status to other drugs, medicaments and biological substances; Z86.59 Personal history of other mental and behavioral disorders
CPT/HCPCS: 36415; 80053; 85025; 85652; 86140; 99284

== ENCOUNTER → 2023-10-20 | Outpatient (CLI) | payer OTHER | LOC: PNWHC3 07:45 | PROVIDERS: ATTEND Specialist | DX: M51.16 Intervertebral disc disorders with radiculopathy, lumbar region (principal); M47.26 Other spondylosis with radiculopathy, lumbar region; F17.200 Nicotine dependence, unspecified, uncomplicated; Z88.8 Allergy status to other drugs, medicaments and biological substances | CPT/HCPCS: 99211 ==

== ENCOUNTER → 2024-04-28 | Outpatient (CLI) | payer OTHER ==
[2024-04-28 09:53] VITALS: BP 135/78; PULSE 81; RESP 16; TEMP 97.3
--- NOTE | 2024-04-28 14:31 | P.PAINPG ---
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 Pt states pain level is provoked at /10 in intensity, constant, localized in the lower lumbar spine, predominantly axial, achy in character w occasional shooting pain towards the hips. Pain is provoked by . 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 Interventional procedures include Medications include Flexeril 10mg, Tyl, Ibu, BioFreeze, Cannabis REVIEW OF ORGAN SYSTEMS: CONSTITUTIONAL: No fevers or chills. No recent weight loss. NEUROLOGICAL: + numbness and tingling along the distal extremities. No seizure disorders or headaches. MUSCULOSKELETAL: + pain PSYCHIATRIC: Denies current depression or suicidal thoughts. Physical Examinations : Constitutional : Cooperative , not in acute distress . Neurologic : Cranial nerve II to XII intact. No focal neurological deficits. Psychiatric : alert & oriented x 3. Matching mood & appropriate affect. Judgment & insight intact. Musculoskeletal : Cervical Spine Motor strength in the deltoid and biceps: Normal right side. Normal Left side Motor strength biceps and the wrist extensors: Normal right side . Normal left side Motor strength in the triceps muscle: Normal right side. Normal left side Deep tendon reflexes: Normal at the biceps. Normal at Brachioradialis. Normal at triceps Vertebral body tenderness to deep palpation over Cervical facet loading test: positive bilaterally Spurling test: positive bilaterally Neck distraction test: positive bilaterally Luz sign: positive bilaterally Lumbar spine Motor strength lower extremities ,thigh and legs 5/5 Right side , 5/5 Left side Deep tendon reflexes : Normal Knee Jerk. Normal Ankle Jerk Vertebral body tenderness over Vargas Test positive Lumbar facet Loading Test: positive Right / positive Left Range of motion of the lumbar spine Flexion 30 degrees, extension 10 degrees Straight Leg Raise test: Left/ Right positive at degrees Katy test: positive right / positive left. Severe tenderness over the Sacroiliac joint on the Right / Left sides Gaenslen test: positive bilaterally Seated flexion test: positive bilaterally. Sacral spine : Severe tenderness over the Sacroiliac joint: right side / left side Range of motion: Flexion of the lumbar spine <60 degrees Range of motion: Extension of the lumbar spine <20 degrees Gaenslen's Test positive Katy test: positive right side / left side Thigh Thrust Test Sacral Thrust Test Imaging: MRI non contrast lumbar spine from 09/02/23 reviewed Assessment/ Plan : Lumbar radiculopathy Recommendation of BL TFESI L4-L5 but pt disinterested again. Only wanted narcotic medications, stating "if you don't want to treat it properly I will leave." Pt admits he continues to use cannabis. All questions answered. I have spent greater than 30 minutes on patient care today. Dr Guzmán was available by phone for the evaluation of this patient. The time was used to review the medical records including relevant urine studies and Prescription history (MAPs), review of the available imaging, evaluation and examination of the patient, coordination of care with the medical staff and if applicable referring physicians, as well as creation of the medical record - Pain Location Bilateral Lower Back Non-Pharmacological Interventions: Chiropractic Treatment, Physical Therapy, Position/Reposition, Relaxation Technique, Sitting Pharmacological Interventions: PRN Medication, Scheduled Medication, Topical Medication PQRS Narrative: Smoking Status Current every day smoker Home Medications: Ambulatory Orders Erythromycin Ophth Oint [Romycin Ophth Oint] 1 applic RIGHT EYE QID 5 Days #1 tube 10/12/20 Divalproex Sodium [Depakote] 500 mg PO BID 10/23/20 Naproxen Sodium [Aleve] 440 mg PO DAILY PRN 10/23/20 busPIRone HCL 15 mg PO BID 10/23/20 HYDROcodone/APAP 5-325MG [Orange 5-325] 1 tab PO Q6HR PRN 3 Days #12 tab 02/18/21 Cephalexin [Keflex] 500 mg PO Q6HR 10 Days #40 cap 08/20/22 Sulfamethox-Tmp 800-160Mg [Bactrim DS 800-160 mg] 1 tab PO Q12HR 10 Days #20 tab 08/20/22 Controlled Substance Measures - Controlled Substance Measures Is patient prescribed a controlled substance at discharge?: No
== END ==
LOC: PNWHC3 08:48
PROVIDERS: ATTEND Specialist
DX: M54.16 Radiculopathy, lumbar region (principal); F17.210 Nicotine dependence, cigarettes, uncomplicated; Z88.8 Allergy status to other drugs, medicaments and biological substances
CPT/HCPCS: 99211